=== PATIENT | female | born 1995 | race Hispanic/Latino ===

== ENCOUNTER 2017-06-08 16:41 | Emergency (ER) | payer MEDICAID, OTHER ==
[2017-06-08 17:27] LABS: BILIRUBIN,URINE Negative (NEGATIVE); COLOR,URINE Yellow (YELLOW); GLUCOSE, URINE (UA) Negative (NEGATIVE); KETONES,URINE Negative (NEGATIVE); LEUKOCYTE ESTERASE ,URINE Large (NEGATIVE); NITRATE,URINE Negative (NEGATIVE); OCCULT BLOOD,URINE Nonhemolyzed Trace (NEGATIVE); PH,URINE 7.5 (5.0-8.0); PROTEIN,URINE POS 2+ (NEGATIVE)
[2017-06-08 17:31] LABS: APPEARANCE,URINE SLIGHTLY CLOUDY (CLEAR)
[2017-06-08 17:43] LABS: BACTERIA,URINE Few /HPF (None Seen); WBC,URINE 26-50 /HPF (0-1)
[2017-06-08 17:46] LABS: MUCUS,URINE Rare LPF (None Seen); SQUAMOUS EPITHELIAL CELL,UR Few /HPF (0-2)
[2017-06-08] MEDS ORDERED: LIDOCAINE HCL-MPF 1% 2ML VIAL ONE (18:05)
[2017-06-08] MEDS ORDERED: CEFTRIAXONE SODIUM 1 GM ONE (18:06)
[2017-06-08] MEDS ORDERED: ACETAMINOPHEN EXTRA STRENGTH 500 MG TABLET ONE (18:06)
[2017-06-08 18:13] LABS: BASOPHILS % (AUTO) 0.4 % (0.0-5.0); EOSINOPHILS % (AUTO) 1.9 % (0.0-8.0); HEMATOCRIT 36.8 % (36-48); LYMPHOCYTES % (AUTO) 37.5 % (21.0-51.0); MEAN CORPUSCULAR HEMOGLOBIN 31.8 pg (27.0-33.0); MEAN CORPUSCULAR HGB CONC 35.8 g/dL (32.0-36.0); MEAN CORPUSCULAR VOLUME 88.8 fL (80-100); NEUTROPHILS % (AUTO) 54.2 % (40.0-77.0); NUCLEATED RED BLOOD CELLS 0.1 % (0.0-0.19); PLATELET COUNT (AUTO) 282 K/uL (130-400); RED BLOOD CELL COUNT(AUTO) 4.15 MIL/uL (4.00-5.50); WHITE BLOOD COUNT (AUTO) 8.8 K/uL (4.8-10.8)
[2017-06-08 18:21] LABS: CREATININE 0.8 mg/dL (0.5-1.5)
[2017-06-08 18:25] LABS: ALBUMIN 3.4 g/dL (3.5-5.0); BILIRUBIN,TOTAL 0.4 mg/dL (0.2-1.0); TOTAL PROTEIN, SERUM 6.9 g/dL (6.0-8.3)
== END 2017-06-08 21:02 | disposition home or self-care (01) ==
LOC: EDH 16:41
DX: O23.41 Unspecified infection of urinary tract in pregnancy, first trimester (principal); Z3A.01 Less than 8 weeks gestation of pregnancy
CPT/HCPCS: 36415; 76817; 80053; 81001; 81025; 84702; 85025; 87088; 87186; 96372; 99285; J0696; J3490

== ENCOUNTER 2017-06-17 22:00 | Emergency (ER) | payer MEDICAID ==
[2017-06-17 22:25] LABS: BASOPHILS % (AUTO) 0.5 % (0.0-5.0); EOSINOPHILS % (AUTO) 1.5 % (0.0-8.0); HEMATOCRIT 36.2 % (36-48); LYMPHOCYTES % (AUTO) 38.6 % (21.0-51.0); MEAN CORPUSCULAR HEMOGLOBIN 31.7 pg (27.0-33.0); MEAN CORPUSCULAR HGB CONC 35.3 g/dL (32.0-36.0); MEAN CORPUSCULAR VOLUME 89.7 fL (80-100); MONOCYTES % (AUTO) 6.9 % (3.0-13.0); NEUTROPHILS % (AUTO) 52.5 % (40.0-77.0); NUCLEATED RED BLOOD CELLS 0.1 % (0.0-0.19); PLATELET COUNT (AUTO) 285 K/uL (130-400); RED BLOOD CELL COUNT(AUTO) 4.03 MIL/uL (4.00-5.50); RED CELL DISTRIBUTION WIDTH 13.4 % (11.0-15.5); WHITE BLOOD COUNT (AUTO) 10.2 K/uL (4.8-10.8)
[2017-06-17 22:29] LABS: HCG,QUAL RESULT POSITIVE (NEGATIVE)
[2017-06-17 22:32] LABS: APPEARANCE,URINE Clear (CLEAR); BILIRUBIN,URINE Negative (NEGATIVE); COLOR,URINE Yellow (YELLOW); GLUCOSE, URINE (UA) Negative (NEGATIVE); KETONES,URINE Negative (NEGATIVE); LEUKOCYTE ESTERASE ,URINE Negative (NEGATIVE); NITRATE,URINE Negative (NEGATIVE); OCCULT BLOOD,URINE Negative (NEGATIVE); PH,URINE >=9.0 (5.0-8.0); PROTEIN,URINE Negative (NEGATIVE)
== END 2017-06-18 00:31 | disposition home or self-care (01) ==
LOC: EDH 22:00
DX: O20.0 Threatened abortion (principal); Z79.899 Other long term (current) drug therapy; Z3A.01 Less than 8 weeks gestation of pregnancy
CPT/HCPCS: 36415; 76801; 81003; 81025; 84702; 85025

== ENCOUNTER 2018-01-09 03:00 | Observation (INO) | payer MEDICAID, OTHER ==
[~2018-01-09] VITALS: Ht 170.2 cm; Wt 144.7 kg
[2018-01-09] MEDS ORDERED: LACTATED RINGERS 1000ML IV PRN (03:15)
[2018-01-09 03:17] VITALS: BP 101/80
[2018-01-09] MEDS ORDERED: LACTATED RINGERS 1000ML 1,000 ML IV ONE (03:42)
[2018-01-09 03:44] LABS: APPEARANCE,URINE Clear (CLEAR); BILIRUBIN,URINE Negative (NEGATIVE); COLOR,URINE Yellow (YELLOW); GLUCOSE, URINE (UA) Negative (NEGATIVE); KETONES,URINE Trace mg/dL (NEGATIVE); LEUKOCYTE ESTERASE ,URINE Small (NEGATIVE); NITRATE,URINE Negative (NEGATIVE); OCCULT BLOOD,URINE Negative (NEGATIVE); PH,URINE 6.5 (5.0-8.0); PROTEIN,URINE Negative (NEGATIVE)
[2018-01-09 03:52] LABS: AMPHET/METH SCREEN,URINE NEGATIVE (NEGATIVE); BARBITURATE SCREEN, URINE NEGATIVE (NEGATIVE); BENZODIAZEPINES SCREEN,URINE NEGATIVE (NEGATIVE); CANNABINOID SCREEN,URINE NEGATIVE (NEGATIVE); COCAINE SCREEN,URINE NEGATIVE (NEGATIVE); OPIATE SCREEN,URINE NEGATIVE (NEGATIVE); PHENCYCLIDINE SCREEN,URINE NEGATIVE (NEGATIVE)
[2018-01-09 03:58] LABS: BACTERIA,URINE Few /HPF (None Seen); MUCUS,URINE Moderate LPF (None Seen); RBC,URINE 0-1 /HPF (0-1); SQUAMOUS EPITHELIAL CELL,UR Moderate /HPF (0-2)
[2018-01-09] MEDS ORDERED: CITRIC ACID/SODIUM CITRATE 30 ML UDCUP ONE (04:23)
[2018-01-09] MEDS ORDERED: CITRIC ACID/SODIUM CITRATE 30 ML UDCUP PO SCH (04:30)
[2018-01-09] MEDS ORDERED: LACTATED RINGERS 1000ML 1,000 ML IV SCH (04:45)
== END 2018-01-09 06:35 | disposition home or self-care (01) ==
LOC: EDH 03:00 → LDH 03:01
PROVIDERS: ADMIT Obstetrics & Gynecology; ATTEND Obstetrics & Gynecology
DX: O21.2 Late vomiting of pregnancy (principal); O26.893 Other specified pregnancy related conditions, third trimester; R10.13 Epigastric pain; R10.32 Left lower quadrant pain; O60.03 Preterm labor without delivery, third trimester; O99.89 Other specified diseases and conditions complicating pregnancy, childbirth and the puerperium; M54.5 Low back pain; Z3A.34 34 weeks gestation of pregnancy
CPT/HCPCS: 76705; 80305; 81001; 96360; 99285; G0378 ×4; J7120 ×2; 96361

== ENCOUNTER 2018-05-13 20:33 | Emergency (ER) | payer MEDICAID ==
[~2018-05-13 20:33] MED LIST: TYL3 PO
[2018-05-13] MEDS ORDERED: ONDANSETRON HCL 4 MG/2 ML VIAL ONE (21:50)
[2018-05-13] MEDS ORDERED: SODIUM CHLORIDE 0.9% 1000ML 1,000 ML IV ONE (21:55)
[2018-05-13 22:16] LABS: BASOPHILS % (AUTO) 0.7 % (0.0-5.0); HEMATOCRIT 39.2 % (36-48); LYMPHOCYTES % (AUTO) 38.5 % (21.0-51.0); MEAN CORPUSCULAR HEMOGLOBIN 29.5 pg (27.0-33.0); MEAN CORPUSCULAR HGB CONC 33.3 g/dL (32.0-36.0); MEAN CORPUSCULAR VOLUME 88.5 fL (80-100); MONOCYTES % (AUTO) 7.5 % (3.0-13.0); NEUTROPHILS % (AUTO) 51.3 % (40.0-77.0); PLATELET COUNT (AUTO) 278 K/uL (130-400); RED BLOOD CELL COUNT(AUTO) 4.43 MIL/uL (4.00-5.50); WHITE BLOOD COUNT (AUTO) 6.1 K/uL (4.8-10.8)
[2018-05-13 22:33] LABS: CREATININE 0.8 mg/dL (0.5-1.5); POTASSIUM 4.1 mmol/L (3.5-5.1)
[2018-05-13 22:37] LABS: ALBUMIN 3.6 g/dL (3.5-5.0); BILIRUBIN,TOTAL 0.3 mg/dL (0.2-1.0); TOTAL PROTEIN, SERUM 7.5 g/dL (6.0-8.3)
== END 2018-05-13 23:33 | disposition home or self-care (01) ==
LOC: EDH 20:33
DX: A08.4 Viral intestinal infection, unspecified (principal); Z90.49 Acquired absence of other specified parts of digestive tract; Z98.890 Other specified postprocedural states
CPT/HCPCS: 36415; 80053; 81025; 83690; 85025; 96361; 96374; 99283; J2405; J7030

== ENCOUNTER 2018-06-28 01:38 | Emergency (ER) | payer MEDICAID ==
[2018-06-28 02:20] LABS: APPEARANCE,URINE Clear (CLEAR); BILIRUBIN,URINE Negative (NEGATIVE); COLOR,URINE Yellow (YELLOW); GLUCOSE, URINE (UA) Negative (NEGATIVE); KETONES,URINE Negative (NEGATIVE); LEUKOCYTE ESTERASE ,URINE Negative (NEGATIVE); NITRATE,URINE Negative (NEGATIVE); OCCULT BLOOD,URINE Large (NEGATIVE); PROTEIN,URINE Negative (NEGATIVE)
[2018-06-28 02:22] LABS: HCG,QUAL RESULT NEGATIVE (NEGATIVE)
[2018-06-28] MEDS ORDERED: ONDANSETRON ODT 4 MG TAB ONE (02:22)
[2018-06-28] MEDS ORDERED: PROMETHAZINE HCL 25 MG/ML 1ML AMPULE IM ONE (02:29)
[2018-06-28 02:40] LABS: BACTERIA,URINE Few /HPF (None Seen); WBC,URINE 0-1 /HPF (0-1)
== END 2018-06-28 02:56 | disposition home or self-care (01) ==
LOC: EDH 01:38
DX: R11.2 Nausea with vomiting, unspecified (principal); R19.7 Diarrhea, unspecified; Z90.49 Acquired absence of other specified parts of digestive tract; Z98.890 Other specified postprocedural states
CPT/HCPCS: 81001; 81025; 96372; 99284; J2550

== ENCOUNTER 2018-11-10 15:36 | Emergency (ER) | payer MEDICAID ==
[2018-11-10 16:54] LABS: BASOPHILS % (AUTO) 0.7 % (0.0-5.0); EOSINOPHILS % (AUTO) 2.7 % (0.0-8.0); HEMATOCRIT 37.9 % (36-48); LYMPHOCYTES % (AUTO) 32.3 % (21.0-51.0); MEAN CORPUSCULAR HEMOGLOBIN 29.5 pg (27.0-33.0); MEAN CORPUSCULAR HGB CONC 33.3 g/dL (32.0-36.0); MEAN CORPUSCULAR VOLUME 88.6 fL (80-100); MONOCYTES % (AUTO) 6.5 % (3.0-13.0); NEUTROPHILS % (AUTO) 57.8 % (40.0-77.0); PLATELET COUNT (AUTO) 279 K/uL (130-400); RED BLOOD CELL COUNT(AUTO) 4.27 MIL/uL (4.00-5.50); RED CELL DISTRIBUTION WIDTH 14.3 % (11.0-15.5); WHITE BLOOD COUNT (AUTO) 7.7 K/uL (4.8-10.8)
[2018-11-10 16:55] LABS: APPEARANCE,URINE Cloudy (CLEAR); BILIRUBIN,URINE Negative (NEGATIVE); COLOR,URINE Yellow (YELLOW); GLUCOSE, URINE (UA) Negative (NEGATIVE); KETONES,URINE Negative (NEGATIVE); LEUKOCYTE ESTERASE ,URINE Trace (NEGATIVE); NITRATE,URINE Negative (NEGATIVE); OCCULT BLOOD,URINE Large (NEGATIVE); PH,URINE 5.5 (5.0-8.0); PROTEIN,URINE Trace mg/dL (NEGATIVE)
[2018-11-10 17:10] LABS: BACTERIA,URINE Few /HPF (None Seen); MUCUS,URINE Rare LPF (None Seen); SQUAMOUS EPITHELIAL CELL,UR Few /HPF (0-2)
== END 2018-11-10 19:56 | disposition home or self-care (01) ==
LOC: EDH 15:36
DX: O20.9 Hemorrhage in early pregnancy, unspecified (principal); Z3A.01 Less than 8 weeks gestation of pregnancy
CPT/HCPCS: 36415; 76801; 76817; 81001; 84702; 85025; 86900; 86901

== ENCOUNTER 2019-01-23 11:08 | Emergency (ER) | payer BC, MEDICAID ==
[2019-01-23 11:46] LABS: APPEARANCE,URINE SL CLOUDY (CLEAR); BILIRUBIN,URINE NEGATIVE (NEGATIVE); COLOR,URINE YELLOW (YELLOW); GLUCOSE, URINE (UA) NEGATIVE (NEGATIVE); KETONES,URINE NEGATIVE (NEGATIVE); LEUKOCYTE ESTERASE ,URINE SMALL (NEGATIVE); NITRATE,URINE NEGATIVE (NEGATIVE); OCCULT BLOOD,URINE MODERATE (NEGATIVE); PROTEIN,URINE NEGATIVE (NEGATIVE); UROBILINOGEN,URINE 0.2 mg/dL (0.2-1.0)
[2019-01-23 11:54] LABS: HCG,QUAL RESULT NEGATIVE (NEGATIVE)
[2019-01-23 12:45] LABS: BACTERIA,URINE Few /HPF (None Seen)
== END 2019-01-23 12:57 | disposition home or self-care (01) ==
LOC: EDH 11:08
DX: N39.0 Urinary tract infection, site not specified (principal); Z79.899 Other long term (current) drug therapy; Z79.891 Long term (current) use of opiate analgesic
CPT/HCPCS: 51702; 81001; 81025

== ENCOUNTER 2019-02-21 23:01 | Emergency (ER) | payer BC, MEDICAID ==
[2019-02-22 01:01] LABS: BASOPHILS % (AUTO) 0.5 % (0.0-5.0); EOSINOPHILS % (AUTO) 2.4 % (0.0-8.0); HEMATOCRIT 37.7 % (36-48); LYMPHOCYTES % (AUTO) 36.3 % (21.0-51.0); MEAN CORPUSCULAR HEMOGLOBIN 29.2 pg (27.0-33.0); MEAN CORPUSCULAR HGB CONC 33.2 g/dL (32.0-36.0); MEAN CORPUSCULAR VOLUME 88.1 fL (79-99); MONOCYTES % (AUTO) 5.8 % (3.0-13.0); NEUTROPHILS % (AUTO) 54.5 % (40.0-77.0); PLATELET COUNT (AUTO) 267 K/uL (130-400); RED BLOOD CELL COUNT(AUTO) 4.28 MIL/uL (4.00-5.50); RED CELL DISTRIBUTION WIDTH 14.2 % (11.0-15.5); WHITE BLOOD COUNT (AUTO) 8.8 K/uL (4.8-10.8)
[2019-02-22] MEDS ORDERED: SODIUM CHLORIDE 0.9% 1000ML 1,000 ML IV ONE (01:03)
[2019-02-22 01:13] LABS: CREATININE 0.7 mg/dL (0.5-1.5); POTASSIUM 4.7 mmol/L (3.5-5.1)
[2019-02-22 01:32] LABS: APPEARANCE,URINE CLEAR (CLEAR); BILIRUBIN,URINE Negative (NEGATIVE); COLOR,URINE Yellow (YELLOW); GLUCOSE, URINE (UA) Negative (NEGATIVE); KETONES,URINE Negative (NEGATIVE); LEUKOCYTE ESTERASE ,URINE Negative (NEGATIVE); NITRATE,URINE Negative (NEGATIVE); OCCULT BLOOD,URINE Negative (NEGATIVE); PROTEIN,URINE Negative (NEGATIVE)
[2019-02-22 01:37] LABS: HCG,QUAL RESULT NEGATIVE (NEGATIVE)
[2019-02-22] MEDS ORDERED: IOHEXOL-350 75 ML VIAL IV ONE (01:50)
[2019-02-22] MEDS ORDERED: ONDANSETRON HCL 4 MG/2 ML VIAL ONE (03:29)
[2019-02-22] MEDS ORDERED: KETOROLAC TROMETHAMINE 30MG/ML ONE (03:29)
[2019-02-22] MEDS ORDERED: IBUPROFEN 400 MG TABLET ONE (08:25)
[2019-02-22] MEDS ORDERED: PREDNISONE 20 MG TABLET ONE (08:26)
[2019-02-22] MEDS ORDERED: IBUPROFEN 200 MG TAB ONE (08:26)
== END 2019-02-22 05:12 | disposition home or self-care (01) ==
LOC: EDH 23:01
DX: N83.201 Unspecified ovarian cyst, right side (principal); Z98.890 Other specified postprocedural states; Z90.49 Acquired absence of other specified parts of digestive tract
CPT/HCPCS: 36415; 74177; 76857; 80048; 81003; 81025; 83690; 85025; 96374; 96375; 99285; J1885; J2405; J7030; Q9967

== ENCOUNTER 2021-05-31 15:27 | Inpatient (IN) | payer MEDICAID ==
[~2021-05-31] VITALS: Ht 170.2 cm; Wt 117.9 kg
[2021-05-31 16:16] LABS: BASOPHILS % (AUTO) 0.4 % (0.0-5.0); EOSINOPHILS % (AUTO) 2.3 % (0.0-8.0); HEMATOCRIT 36.7 % (36-48); LYMPHOCYTES % (AUTO) 21.8 % (21.0-51.0); MEAN CORPUSCULAR HEMOGLOBIN 26.3 pg (27.0-33.0); MEAN CORPUSCULAR HGB CONC 32.4 g/dL (32.0-36.0); MONOCYTES % (AUTO) 7.7 % (3.0-13.0); NEUTROPHILS % (AUTO) 66.9 % (40.0-77.0); PLATELET COUNT (AUTO) 273 K/uL (130-400); RED BLOOD CELL COUNT(AUTO) 4.53 MIL/uL (4.00-5.50); RED CELL DISTRIBUTION WIDTH 16.3 % (11.0-15.5)
[2021-05-31 16:28] LABS: ALBUMIN 3.6 g/dL (3.5-5.0); BILIRUBIN,TOTAL 0.9 mg/dL (0.2-1.0); CREATININE 0.6 mg/dL (0.5-1.5); POTASSIUM 3.3 mmol/L (3.5-5.1)
[2021-05-31] MEDS ORDERED: 0.9%NACL 1000ML 1,000 ML IV ONE ×2 (17:27→17:30)
[2021-05-31] MEDS ORDERED: KETOROLAC 30MG VIAL (30MG/ML) ONE (17:28)
[2021-05-31] MEDS ORDERED: KETOROLAC 30MG VIAL (30MG/ML) IVP ONE (17:30)
[2021-05-31] MEDS ORDERED: ONDANSETRON 4MG INJ ONE (17:39)
[2021-05-31] MEDS ORDERED: POTASSIUM CHLORIDE 10MEQ/100ML 100 ML IV ONE (17:39)
[2021-05-31] MEDS ORDERED: POTASSIUM CHLORIDE 10MEQ/100ML 10 MEQ/100 ML ML IV ONE (18:00)
[2021-05-31] MEDS ORDERED: ONDANSETRON 4MG INJ IVP ONE (18:00)
[2021-05-31] MEDS ORDERED: IOHEXOL 350 MG/ML 100ML INFUS..BTL IV ONE (18:12)
[2021-05-31 19:32] LABS: THYROID STIMULATING HORMONE 0.9 uIU/mL (0.36-3.74)
[2021-05-31] MEDS: TRAMADOL HCL 50 MG TABLET PO SCH (20:00)
[2021-05-31] MEDS ORDERED: ACETAMINOPHEN 500 MG TABLET PO PRN (20:00)
[2021-05-31] MEDS ORDERED: PROMETHAZINE HCL 25 MG/ML 1ML AMPULE IM PRN (20:00)
[2021-05-31] MEDS: M.V.I. IV [ADULT] 10 ML, FOLIC ACID 1 MG, THIAMINE HCL 100 MG in 0.9%NACL 1000ML 1,000 ML IV SCH (20:16)
[2021-05-31] MEDS: PANTOPRAZOLE 40 MG TAB DR PO SCH (20:19)
[2021-05-31 20:30] VITALS: BP 120/61
[2021-05-31 21:00] LABS: APPEARANCE,URINE Clear (CLEAR); BILIRUBIN,URINE Negative (NEGATIVE); COLOR,URINE Yellow (YELLOW); GLUCOSE, URINE (UA) Negative (NEGATIVE); KETONES,URINE 40 mg/dL (NEGATIVE); LEUKOCYTE ESTERASE ,URINE Negative (NEGATIVE); NITRATE,URINE Negative (NEGATIVE); OCCULT BLOOD,URINE Small (NEGATIVE); PROTEIN,URINE POS 2+ mg/dL (NEGATIVE)
[2021-05-31 21:07] LABS: BACTERIA,URINE None Seen /HPF (None Seen); RBC,URINE None Seen /HPF (0-1); SQUAMOUS EPITHELIAL CELL,UR Rare /HPF (0-2); WBC,URINE None Seen /HPF (0-1)
[2021-05-31 21:11] LABS: AMPHET/METH SCREEN,URINE NEGATIVE (NEGATIVE); BARBITURATE SCREEN, URINE NEGATIVE (NEGATIVE); BENZODIAZEPINES SCREEN,URINE NEGATIVE (NEGATIVE); CANNABINOID SCREEN,URINE POSITIVE (NEGATIVE); COCAINE SCREEN,URINE NEGATIVE (NEGATIVE); OPIATE SCREEN,URINE NEGATIVE (NEGATIVE); PHENCYCLIDINE SCREEN,URINE NEGATIVE (NEGATIVE)
[2021-05-31] MEDS ORDERED: MORPHINE 2 MG SYG IM ONE (21:30)
[2021-05-31] MEDS: LACTATED RINGERS 1000ML 1,000 ML IV SCH (22:30)
[2021-05-31 23:32] VITALS: BP 115/55
[2021-06-01] VITALS (7 sets, daily range): BP systolic 93–121; BP diastolic 42–68
[2021-06-01] MEDS: LACTATED RINGERS 1000ML 1,000 ML IV SCH ×3 (00:55→22:30)
[2021-06-01] MEDS ORDERED: MAG/ALUM/SIMETH 30 ML UDCUP PO PRN (01:30)
[2021-06-01] MEDS ORDERED: ZOLPIDEM TARTRATE 5 MG TAB PO PRN (01:30)
[2021-06-01] MEDS ORDERED: GUAIFENESIN-DM 200/20 MG 10 ML PO PRN (01:30)
[2021-06-01] MEDS ORDERED: NITROGLYCERIN 0.4 MG SL TAB SL PRN (01:30)
[2021-06-01] MEDS ORDERED: LACTULOSE 20 GM/30 ML UDCUP PO PRN (01:30)
[2021-06-01] MEDS: TRAMADOL HCL 50 MG TABLET PO SCH ×4 (02:00→20:00)
[2021-06-01] MEDS: PANTOPRAZOLE 40 MG TAB DR PO SCH ×2 (08:48→20:08)
[2021-06-01] MEDS: ENOXAPARIN SODIUM 40 MG/0.4 ML SYRINGE SQ SCH (08:49)
[2021-06-01] MEDS: KETOROLAC 30MG VIAL (30MG/ML) IVP PRN ×2 (08:54→14:38)
[2021-06-01] MEDS: ONDANSETRON 4MG INJ IVP PRN ×2 (15:53→22:48)
[2021-06-01] MEDS ORDERED: CYANOCOBALAMIN (VITAMIN B-12) 1000 MCG/ML 1ML VIAL IM SCH (17:00)
[2021-06-01] MEDS ORDERED: PHARMACY COMMUNICATION MISC SCH (17:00)
[2021-06-01] MEDS: M.V.I. IV [ADULT] 10 ML, FOLIC ACID 1 MG, THIAMINE HCL 100 MG in 0.9%NACL 1000ML 1,000 ML IV SCH (17:25)
[2021-06-01] MEDS: GABAPENTIN 300 MG CAPSULE PO SCH (20:08)
[2021-06-01] MEDS: MORPHINE 2 MG SYG IV PRN (20:09)
[2021-06-02] VITALS (7 sets, daily range): BP systolic 82–111; BP diastolic 39–65
[2021-06-02] MEDS: LACTATED RINGERS 1000ML 1,000 ML IV SCH ×2 (01:30→11:30)
[2021-06-02] MEDS: TRAMADOL HCL 50 MG TABLET PO SCH ×4 (04:30→20:52)
[2021-06-02] MEDS: PANTOPRAZOLE 40 MG TAB DR PO SCH ×2 (09:04→20:52)
[2021-06-02] MEDS: ENOXAPARIN SODIUM 40 MG/0.4 ML SYRINGE SQ SCH (09:06)
[2021-06-02] MEDS: THIAMINE HCL 100 MG/ML 2ML VIAL IM SCH (09:17)
[2021-06-02] MEDS: ONDANSETRON 4MG INJ IVP PRN (12:13)
[2021-06-02] MEDS: M.V.I. IV [ADULT] 10 ML, FOLIC ACID 1 MG, THIAMINE HCL 100 MG in 0.9%NACL 1000ML 1,000 ML IV SCH (14:15)
[2021-06-02] MEDS: MORPHINE 2 MG SYG IV PRN (17:32)
[2021-06-02] MEDS: GABAPENTIN 300 MG CAPSULE PO SCH (20:52)
[2021-06-03] MEDS: TRAMADOL HCL 50 MG TABLET PO SCH (03:36)
[2021-06-03 04:16] VITALS: BP 96/59
[2021-06-03 04:49] LABS: BASOPHILS % (AUTO) 0.3 % (0.0-5.0); EOSINOPHILS % (AUTO) 4.3 % (0.0-8.0); LYMPHOCYTES % (AUTO) 42.7 % (21.0-51.0); MEAN CORPUSCULAR HEMOGLOBIN 27.8 pg (27.0-33.0); MEAN CORPUSCULAR HGB CONC 32.4 g/dL (32.0-36.0); MEAN CORPUSCULAR VOLUME 85.8 fL (79-99); MONOCYTES % (AUTO) 8.1 % (3.0-13.0); NEUTROPHILS % (AUTO) 42.9 % (40.0-77.0); NUCLEATED RED BLOOD CELLS 0.3 % (0.0-0.19); PLATELET COUNT (AUTO) 238 K/uL (130-400); RED BLOOD CELL COUNT(AUTO) 3.38 MIL/uL (4.00-5.50); RED CELL DISTRIBUTION WIDTH 17.4 % (11.0-15.5); WHITE BLOOD COUNT (AUTO) 6.6 K/uL (4.8-10.8)
[2021-06-03 05:36] LABS: ALBUMIN 2.5 g/dL (3.5-5.0); BILIRUBIN,TOTAL 0.6 mg/dL (0.2-1.0); CREATININE 0.5 mg/dL (0.5-1.5); MAGNESIUM 1.8 mg/dL (1.80-2.40); PHOSPHORUS 4.8 mg/dL (2.5-4.9); TOTAL PROTEIN, SERUM 5.7 g/dL (6.0-8.3)
[2021-06-03] MEDS: LACTATED RINGERS 1000ML 1,000 ML IV SCH ×2 (07:30→17:30)
[2021-06-03 08:00] VITALS: BP 80/31
[2021-06-03] MEDS: PANTOPRAZOLE 40 MG TAB DR PO SCH ×2 (09:35→19:23)
[2021-06-03] MEDS: THIAMINE HCL 100 MG/ML 2ML VIAL IM SCH (09:35)
[2021-06-03] MEDS: ENOXAPARIN SODIUM 40 MG/0.4 ML SYRINGE SQ SCH (09:37)
[2021-06-03] MEDS ORDERED: POTASSIUM CHLORIDE 10% ELIXIR 20 MEQ/15 ML UDCUP PO PRN (10:00)
[2021-06-03] MEDS ORDERED: LIDOCAINE HCL-MPF 1% 2ML VIAL IV PRN (10:00)
[2021-06-03] MEDS ORDERED: POTASSIUM CHLORIDE 20MEQ/100ML 100 ML IV PRN (10:00)
[2021-06-03] MEDS: KCL 20 MEQ ERTAB PO PRN ×2 (10:25→19:48)
[2021-06-03] MEDS: M.V.I. IV [ADULT] 10 ML, FOLIC ACID 1 MG, THIAMINE HCL 100 MG in 0.9%NACL 1000ML 1,000 ML IV SCH (10:28)
[2021-06-03 12:00] VITALS: BP 105/64
[2021-06-03 16:00] VITALS: BP 107/59
[2021-06-03] MEDS: ACETAMINOPHEN WITH CODEINE 1 TAB TAB PO PRN (16:12)
[2021-06-03] MEDS: GABAPENTIN 300 MG CAPSULE PO SCH (19:24)
[2021-06-03 20:31] VITALS: BP 125/69
[2021-06-03] MEDS: MORPHINE 2 MG SYG IV PRN (20:53)
[2021-06-03 23:15] VITALS: BP 121/67
[2021-06-04] MEDS: MORPHINE 2 MG SYG IV PRN ×2 (02:21→12:17)
[2021-06-04 03:19] VITALS: BP 109/61
[2021-06-04] MEDS: LACTATED RINGERS 1000ML 1,000 ML IV SCH ×2 (03:30→13:40)
[2021-06-04 04:33] LABS: BASOPHILS % (AUTO) 0.5 % (0.0-5.0); EOSINOPHILS % (AUTO) 3.3 % (0.0-8.0); HEMATOCRIT 31.4 % (36-48); LYMPHOCYTES % (AUTO) 37.4 % (21.0-51.0); MEAN CORPUSCULAR HEMOGLOBIN 27.2 pg (27.0-33.0); MEAN CORPUSCULAR HGB CONC 32.2 g/dL (32.0-36.0); MEAN CORPUSCULAR VOLUME 84.4 fL (79-99); MONOCYTES % (AUTO) 8.1 % (3.0-13.0); NEUTROPHILS % (AUTO) 49.3 % (40.0-77.0); PLATELET COUNT (AUTO) 272 K/uL (130-400); RED BLOOD CELL COUNT(AUTO) 3.72 MIL/uL (4.00-5.50); RED CELL DISTRIBUTION WIDTH 18.5 % (11.0-15.5); WHITE BLOOD COUNT (AUTO) 6.6 K/uL (4.8-10.8)
[2021-06-04 04:55] LABS: ALBUMIN 2.9 g/dL (3.5-5.0); BILIRUBIN,TOTAL 0.6 mg/dL (0.2-1.0); CREATININE 0.5 mg/dL (0.5-1.5); MAGNESIUM 1.8 mg/dL (1.80-2.40); PHOSPHORUS 4.2 mg/dL (2.5-4.9); POTASSIUM 4.3 mmol/L (3.5-5.1); TOTAL PROTEIN, SERUM 6.3 g/dL (6.0-8.3)
[2021-06-04 08:00] VITALS: BP 104/62
[2021-06-04] MEDS: PANTOPRAZOLE 40 MG TAB DR PO SCH ×2 (10:20→21:34)
[2021-06-04] MEDS: THIAMINE HCL 100 MG/ML 2ML VIAL IM SCH (10:20)
[2021-06-04] MEDS: ENOXAPARIN SODIUM 40 MG/0.4 ML SYRINGE SQ SCH (10:21)
[2021-06-04 12:00] VITALS: BP 107/72
[2021-06-04] MEDS: ONDANSETRON 4MG INJ IVP PRN ×2 (13:41→22:01)
[2021-06-04 16:00] VITALS: BP 120/78
[2021-06-04] MEDS: ACETAMINOPHEN WITH CODEINE 1 TAB TAB PO PRN (16:50)
[2021-06-04 19:00] VITALS: BP 103/64
[2021-06-04] MEDS: GABAPENTIN 300 MG CAPSULE PO SCH (21:34)
[2021-06-04] MEDS: DOCUSATE NA 100MG/10ML UDCUP PO SCH (21:34)
[2021-06-04] MEDS: SENNOSIDES 8.6 MG TABLET PO SCH (21:34)
[2021-06-05] VITALS: BP 100/50
[2021-06-05 04:00] VITALS: BP 91/45
[2021-06-05 04:47] LABS: BASOPHILS % (AUTO) 0.4 % (0.0-5.0); EOSINOPHILS % (AUTO) 3.9 % (0.0-8.0); HEMATOCRIT 30.8 % (36-48); LYMPHOCYTES % (AUTO) 39.2 % (21.0-51.0); MEAN CORPUSCULAR HEMOGLOBIN 27.2 pg (27.0-33.0); MEAN CORPUSCULAR HGB CONC 31.8 g/dL (32.0-36.0); MEAN CORPUSCULAR VOLUME 85.6 fL (79-99); MONOCYTES % (AUTO) 8.9 % (3.0-13.0); NEUTROPHILS % (AUTO) 46.2 % (40.0-77.0); PLATELET COUNT (AUTO) 227 K/uL (130-400); WHITE BLOOD COUNT (AUTO) 5.6 K/uL (4.8-10.8)
[2021-06-05] MEDS: MORPHINE 2 MG SYG IV PRN ×3 (05:13→23:19)
[2021-06-05 05:16] LABS: ALBUMIN 2.8 g/dL (3.5-5.0); BILIRUBIN,TOTAL 0.5 mg/dL (0.2-1.0); CREATININE 0.6 mg/dL (0.5-1.5); PHOSPHORUS 4.6 mg/dL (2.5-4.9); POTASSIUM 3.3 mmol/L (3.5-5.1)
[2021-06-05] MEDS: KCL 20 MEQ ERTAB PO PRN ×3 (07:31→15:00)
[2021-06-05] MEDS: LACTATED RINGERS 1000ML 1,000 ML IV SCH ×3 (07:32→23:18)
[2021-06-05 08:00] VITALS: BP 111/50
[2021-06-05] MEDS: POLYETHYLENE GLYCOL 3350 17 GM POWD.PACK PO SCH (08:44)
[2021-06-05] MEDS: DOCUSATE NA 100MG/10ML UDCUP PO SCH ×2 (08:44→21:00)
[2021-06-05] MEDS: ENOXAPARIN SODIUM 40 MG/0.4 ML SYRINGE SQ SCH (08:46)
[2021-06-05] MEDS: PANTOPRAZOLE 40 MG TAB DR PO SCH ×2 (08:46→21:44)
[2021-06-05] MEDS: THIAMINE HCL 100 MG/ML 2ML VIAL IM SCH (08:46)
[2021-06-05] MEDS: SENNOSIDES 8.6 MG TABLET PO SCH ×2 (08:46→21:00)
[2021-06-05] MEDS: ONDANSETRON 4MG INJ IVP PRN ×2 (09:38→22:03)
[2021-06-05 11:58] LABS: APPEARANCE,URINE Cloudy (CLEAR); BILIRUBIN,URINE Negative (NEGATIVE); COLOR,URINE Yellow (YELLOW); GLUCOSE, URINE (UA) Negative (NEGATIVE); KETONES,URINE Trace mg/dL (NEGATIVE); LEUKOCYTE ESTERASE ,URINE Trace (NEGATIVE); NITRATE,URINE Negative (NEGATIVE); OCCULT BLOOD,URINE Negative (NEGATIVE); PROTEIN,URINE Negative (NEGATIVE)
[2021-06-05 12:00] VITALS: BP 106/53
[2021-06-05 12:35] LABS: BACTERIA,URINE Few /HPF (None Seen); RBC,URINE 0-1 /HPF (0-1)
[2021-06-05 16:00] VITALS: BP 101/52
[2021-06-05 20:00] VITALS: BP 106/51
[2021-06-05] MEDS: GABAPENTIN 300 MG CAPSULE PO SCH (21:44)
[2021-06-06] VITALS (7 sets, daily range): BP systolic 101–129; BP diastolic 48–69
[2021-06-06] MEDS: POLYETHYLENE GLYCOL 3350 17 GM POWD.PACK PO SCH (09:06)
[2021-06-06] MEDS: DOCUSATE NA 100MG/10ML UDCUP PO SCH ×2 (09:06→21:41)
[2021-06-06] MEDS: SENNOSIDES 8.6 MG TABLET PO SCH ×2 (09:07→21:40)
[2021-06-06] MEDS: PANTOPRAZOLE 40 MG TAB DR PO SCH ×2 (09:07→21:41)
[2021-06-06] MEDS: THIAMINE HCL 100 MG/ML 2ML VIAL IM SCH (09:07)
[2021-06-06] MEDS: ENOXAPARIN SODIUM 40 MG/0.4 ML SYRINGE SQ SCH (09:08)
[2021-06-06] MEDS ORDERED: DIPHENHYDRAMINE HCL 25 MG CAPSULE PO PRN (13:00)
[2021-06-06] MEDS: GABAPENTIN 100 MG CAPSULE PO SCH ×2 (13:35→21:41)
[2021-06-06] MEDS: HYDROCODONE/ACETAMINOPHEN 5/325 MG TAB PO PRN (16:10)
[2021-06-06] MEDS: ONDANSETRON 4MG INJ IVP PRN (22:28)
[2021-06-07] MEDS: HYDROCODONE/ACETAMINOPHEN 5/325 MG TAB PO PRN ×2 (01:14→08:43)
[2021-06-07 03:48] LABS: BASOPHILS % (AUTO) 0.6 % (0.0-5.0); EOSINOPHILS % (AUTO) 4.6 % (0.0-8.0); HEMATOCRIT 32.1 % (36-48); MEAN CORPUSCULAR HEMOGLOBIN 27.4 pg (27.0-33.0); MEAN CORPUSCULAR HGB CONC 31.5 g/dL (32.0-36.0); MEAN CORPUSCULAR VOLUME 87.2 fL (79-99); MONOCYTES % (AUTO) 7.8 % (3.0-13.0); NEUTROPHILS % (AUTO) 45.9 % (40.0-77.0); PLATELET COUNT (AUTO) 265 K/uL (130-400); RED BLOOD CELL COUNT(AUTO) 3.68 MIL/uL (4.00-5.50); RED CELL DISTRIBUTION WIDTH 19.7 % (11.0-15.5); WHITE BLOOD COUNT (AUTO) 5.4 K/uL (4.8-10.8)
[2021-06-07 04:07] LABS: ALBUMIN 2.8 g/dL (3.5-5.0); BILIRUBIN,TOTAL 0.4 mg/dL (0.2-1.0); CREATININE 0.6 mg/dL (0.5-1.5); MAGNESIUM 2.2 mg/dL (1.80-2.40); PHOSPHORUS 5.1 mg/dL (2.5-4.9); POTASSIUM 3.8 mmol/L (3.5-5.1); TOTAL PROTEIN, SERUM 6.3 g/dL (6.0-8.3)
[2021-06-07 04:18] VITALS: BP 100/60
[2021-06-07] MEDS: GABAPENTIN 100 MG CAPSULE PO SCH ×2 (06:16→13:54)
[2021-06-07 08:00] VITALS: BP 114/46
[2021-06-07] MEDS: SENNOSIDES 8.6 MG TABLET PO SCH (08:35)
[2021-06-07] MEDS: PANTOPRAZOLE 40 MG TAB DR PO SCH (08:35)
[2021-06-07] MEDS: THIAMINE HCL 100 MG/ML 2ML VIAL IM SCH (08:35)
[2021-06-07] MEDS: ENOXAPARIN SODIUM 40 MG/0.4 ML SYRINGE SQ SCH (08:37)
[2021-06-07] MEDS: DOCUSATE NA 100MG/10ML UDCUP PO SCH (08:48)
[2021-06-07] MEDS ORDERED: CITALOPRAM 20 MG TABLET PO SCH (09:00)
[2021-06-07 12:00] VITALS: BP 103/69
[2021-06-07 16:00] VITALS: BP 122/68
== END 2021-06-07 19:35 | disposition home or self-care (01) | DRG 861 ==
LOC: EDH 15:27 → OBSVTOIN 15:28 → EDHIP 15:28 → 3CH 19:41
PROVIDERS: ADMIT Internal Medicine Critical Care Medicine; ATTEND Internal Medicine Critical Care Medicine
DX: G89.18 Other acute postprocedural pain (principal); E66.01 Morbid (severe) obesity due to excess calories; E87.6 Hypokalemia; K95.89 Other complications of other bariatric procedure; F12.10 Cannabis abuse, uncomplicated; Z20.822 Contact with and (suspected) exposure to COVID-19; Z68.41 Body mass index [BMI] 40.0-44.9, adult; Z98.84 Bariatric surgery status
CPT/HCPCS: 36415; 71275; 72148; 73521; 74177; 80053; 80305; 81001; 81025; 82306; 82607; 82746; 83540; 83605; 83735; 83880; 84100; 84145; 84425; 84443; 84484; 85025; 85378; 87635; 93005; 93970; 97039; G0378; J1650; J1885; J2405; J3411; J3420; J3490; J7030; J7120; Q9967

== ENCOUNTER 2021-06-19 21:04 | Emergency (ER) | payer MEDICAID ==
[~2021-06-19] VITALS: Ht 170.2 cm; Wt 108.9 kg
[2021-06-19] MEDS ORDERED: PROCHLORPERAZINE 10MG/2ML INJ IV ONE (22:00)
[2021-06-19] MEDS ORDERED: KETOROLAC 15MG/ML VIAL (15MG/ML) IV ONE (22:00)
[2021-06-19] MEDS ORDERED: DiphenhydrAMINE HCL 50 MG/ML VIAL IV ONE (22:00)
[2021-06-19] MEDS ORDERED: KETOROLAC 15MG/ML VIAL (15MG/ML) ONE (22:06)
[2021-06-19] MEDS ORDERED: DiphenhydrAMINE HCL 50 MG/ML VIAL ONE (22:06)
[2021-06-19] MEDS ORDERED: PROCHLORPERAZINE 10MG/2ML INJ ONE (22:06)
[2021-06-19] MEDS ORDERED: FIORIT PO (22:49)
[2021-06-19 22:53] VITALS: BP 130/65
== END 2021-06-19 23:07 | disposition home or self-care (01) ==
LOC: EDH 21:04
DX: R51.9 Headache, unspecified (principal); Z98.890 Other specified postprocedural states
CPT/HCPCS: 96374; 96375; 99284; J0780; J1200; J1885

== ENCOUNTER 2021-06-28 19:44 | Emergency (ER) | payer MEDICAID ==
[~2021-06-28] VITALS: Ht 170.2 cm; Wt 108.9 kg
[~2021-06-28 19:44] MED LIST changes: +FIORIT PO
[2021-06-28 19:54] VITALS: BP 115/75
[2021-06-28 21:34] LABS: BASOPHILS % (AUTO) 0.6 % (0.0-5.0); EOSINOPHILS % (AUTO) 4.9 % (0.0-8.0); HEMATOCRIT 38.6 % (36-48); LYMPHOCYTES % (AUTO) 28.5 % (21.0-51.0); MEAN CORPUSCULAR HEMOGLOBIN 28.5 pg (27.0-33.0); MEAN CORPUSCULAR HGB CONC 31.6 g/dL (32.0-36.0); MEAN CORPUSCULAR VOLUME 90.2 fL (79-99); MONOCYTES % (AUTO) 8.6 % (3.0-13.0); PLATELET COUNT (AUTO) 247 K/uL (130-400); RED BLOOD CELL COUNT(AUTO) 4.28 MIL/uL (4.00-5.50); RED CELL DISTRIBUTION WIDTH 18.1 % (11.0-15.5); WHITE BLOOD COUNT (AUTO) 4.7 K/uL (4.8-10.8)
[2021-06-28 21:44] LABS: CREATININE 0.6 mg/dL (0.5-1.5); POTASSIUM 3.5 mmol/L (3.5-5.1)
[2021-06-28 21:49] LABS: ALBUMIN 3.3 g/dL (3.5-5.0); BILIRUBIN,TOTAL 0.4 mg/dL (0.2-1.0); TOTAL PROTEIN, SERUM 7.1 g/dL (6.0-8.3)
[2021-06-28 22:45] LABS: ERYTHROCYTE SEDIMENTATION RATE 19 MM/HR (0-20)
== END 2021-06-28 23:05 | disposition left against medical advice (07) ==
LOC: EDH 19:44
DX: M79.604 Pain in right leg (principal); M79.605 Pain in left leg; Z53.21 Procedure and treatment not carried out due to patient leaving prior to being seen by health care provider
CPT/HCPCS: 36415; 80053; 85025; 85651

== ENCOUNTER 2021-07-07 14:06 | Emergency (ER) | payer MEDICAID ==
[~2021-07-07] VITALS: Ht 170.2 cm; Wt 108.9 kg
[2021-07-07] MEDS ORDERED: ONDANSETRON 4MG INJ IVP ONE (15:00)
[2021-07-07] MEDS ORDERED: 0.9% NACL 500ML IV.SOLN 500 ML IV ONE (15:00)
[2021-07-07] MEDS ORDERED: MORPHINE 4 MG SYG IVP ONE (15:00)
[2021-07-07 15:24] LABS: BASOPHILS % (AUTO) 0.7 % (0.0-5.0); EOSINOPHILS % (AUTO) 4.8 % (0.0-8.0); HEMATOCRIT 36.6 % (36-48); LYMPHOCYTES % (AUTO) 37.6 % (21.0-51.0); MEAN CORPUSCULAR HEMOGLOBIN 28.6 pg (27.0-33.0); MEAN CORPUSCULAR HGB CONC 32.2 g/dL (32.0-36.0); MEAN CORPUSCULAR VOLUME 88.8 fL (79-99); MONOCYTES % (AUTO) 8.6 % (3.0-13.0); NEUTROPHILS % (AUTO) 47.9 % (40.0-77.0); PLATELET COUNT (AUTO) 289 K/uL (130-400); RED BLOOD CELL COUNT(AUTO) 4.12 MIL/uL (4.00-5.50); RED CELL DISTRIBUTION WIDTH 17.1 % (11.0-15.5); WHITE BLOOD COUNT (AUTO) 5.7 K/uL (4.8-10.8)
[2021-07-07 15:35] LABS: CREATININE 0.5 mg/dL (0.5-1.5); POTASSIUM 3.1 mmol/L (3.5-5.1)
[2021-07-07 15:39] LABS: ALBUMIN 3.5 g/dL (3.5-5.0); BILIRUBIN,TOTAL 0.6 mg/dL (0.2-1.0); TOTAL PROTEIN, SERUM 6.8 g/dL (6.0-8.3)
[2021-07-07] MEDS ORDERED: POTASSIUM BICARB/CIT AC 25 MEQ TABLET.EFF PO ONE (16:00)
[2021-07-07 17:00] VITALS: BP 105/57
== END 2021-07-07 17:06 | disposition home or self-care (01) ==
LOC: EDH 14:06
DX: G89.29 Other chronic pain (principal); M79.661 Pain in right lower leg; F41.9 Anxiety disorder, unspecified; F32.A Depression, unspecified
CPT/HCPCS: 36415; 80053; 85025; 93971; 96361; 96374; 96375; 99284; J2270; J2405; J7040